=== PATIENT | female | born 1945 | race Caucasian/White ===

== ENCOUNTER → 2018-04-03 11:00 | Outpatient (CLI) | payer MEDICARE, OTHER, SELFPAY ==
[2018-04-03 12:31] LABS: BUN Creatinine Ratio 23.8 (6-22); Blood Urea Nitrogen 19 mg/dL (7-17); Calcium 9.7 mg/dL (8.4-10.2); Carbon Dioxide 29 mmol/L (22-32); Chloride 102 mmol/L (98-107); Cholesterol 205 mg/dL (140-199); Estimated Glomerular Filt Rate > 60.0 mL/min (>60); Glucose 99 mg/dL (80-110); HDL Cholesterol 52 mg/dL (40-60); HEMOLYSIS < 15 (0-50); LDL Cholesterol Calculated 133 mg/dL (<100); Potassium 3.7 mmol/L (3.4-5.1); Sodium 141 mmol/L (137-145); Triglycerides 100 mg/dL (35-150)
[2018-04-03 16:07] LABS: Hep C Virus Ab w/Reflex Quant NEGATIVE s/c (NEGATIVE)
[2018-04-07 13:51] LABS: Hepatitis B Surf AB Imm QUANT > 999 mIU/mL (> 9)
== END ==
PROVIDERS: PCP Family Medicine; Visit Provider Family Medicine
DX: Z13.220 Encounter for screening for lipoid disorders (principal); R03.0 Elevated blood-pressure reading, without diagnosis of hypertension; Z71.89 Other specified counseling; Z11.59 Encounter for screening for other viral diseases
CPT/HCPCS: 36415; 80048; 80061; 86317; 86762; 86803

== ENCOUNTER → 2018-12-11 12:29 | Outpatient (CLI) | payer MEDICARE, OTHER, SELFPAY ==
--- NOTE | 2018-12-11 | DI.MRI.S_ITS ---
PROCEDURE: MR SHOULDER RT WO CON INDICATIONS: ACUTE PAIN OF RIGHT SHOULDER TECHNIQUE: Noncontrast oblique coronal T2 fast spin echo with fat saturation, oblique sagittal T1 spin echo and T2 fast spin echo with fat saturation, axial T1 spin echo and T2 fast spin echo with fat saturation through the shoulder. COMPARISON: None. FINDINGS: Image quality: Excellent. Rotator cuff: There is massive full-thickness tear of the supraspinatus tendon with tendon retraction. No supraspinatus muscle atrophy. High-grade partial-thickness tear is present in infraspinatus and subscapularis tendons. Bones and bursae: No bone marrow contusions or fractures. Severe acromioclavicular and moderate glenohumeral joint degeneration. The acromion demonstrates conventional anatomy, without an os acromiale. There is small joint effusion. There is a small amount of subacromial-subdeltoid and subcoracoid bursal fluid, likely to rotator cuff tendon tear and joint effusion. Capsule and soft tissues: There is degenerative fraying of the anterior and posterior labrum. In the absence of intra-articular contrast, the glenohumeral ligaments appear intact. The long head of the biceps tendon demonstrates normal location and morphology. The rotator interval appears normal, without fibrosis. The coracohumeral ligament is normal in thickness. IMPRESSION: 1. Massive tear of the supraspinatus tendon with tendon retraction but no supraspinatus muscle atrophy. 2. High-grade partial-thickness tear of the infraspinatus and subscapularis tendons. 3. Degenerative fraying of the anterior and posterior glenoid labrum. 4. Severe acromioclavicular and moderate glenohumeral joint effusion. Dictated by: Jaelyn Ocasio M.D. on 12/11/2018 at 16:43 Approved by: Jaelyn Ocasio M.D. on 12/11/2018 at 18:56
== END ==
PROVIDERS: Family Provider Family Medicine; PCP Family Medicine; Visit Provider Family Medicine
DX: S46.011A Strain of muscle(s) and tendon(s) of the rotator cuff of right shoulder, initial encounter (principal); M25.511 Pain in right shoulder
CPT/HCPCS: 73221

== ENCOUNTER → 2020-06-19 09:05 | Outpatient (CLI) | payer MEDICARE, OTHER, SELFPAY ==
--- NOTE | 2020-06-19 09:13 | DI.RAD.S_ITS ---
PROCEDURE: XR HAND RT MIN 3V INDICATIONS: Right thumb pain TECHNIQUE: 3 views of the hand(s) acquired. COMPARISON: None. FINDINGS: Bones: No fractures or dislocations. Mild degenerative change. No osseous erosions identified. Carpal bones are normally aligned. No suspicious bony lesions. Soft tissues: No suspicious soft tissue calcifications. IMPRESSION: Mild degenerative change. No osseous erosions identified Dictated by: Curly Turner M.D. on 06/19/2020 at 8:55 Approved by: Curly Turner M.D. on 06/19/2020 at 8:57
--- NOTE | 2020-06-19 09:13 | DI.RAD.S_ITS ---
PROCEDURE: XR CHEST 2V INDICATIONS: Cough TECHNIQUE: 2 views of the chest were acquired. COMPARISON: None. FINDINGS: Surgical changes and devices: Left breast surgical clips. Lungs and pleura: Diffuse prominence of the pulmonary markings. Possible reticular thickening. No pleural effusions or pneumothorax. Mediastinum: Mediastinal contours are within normal limits. Heart size is within normal limits. Bones and chest wall: No suspicious bony abnormalities. Soft tissues appear unremarkable. IMPRESSION: Diffuse prominence of the pulmonary markings with possible reticular thickening. This could be due to emphysematous change, pulmonary edema, or possibly interstitial lung disease or less likely infectious/inflammatory etiology. If clinically indicated a CT of the chest could be performed for further evaluation. Dictated by: Curly Turner M.D. on 06/19/2020 at 8:52 Approved by: Curly Turner M.D. on 06/19/2020 at 8:54
== END ==
PROVIDERS: Family Provider Family Medicine; PCP Family Medicine; Referring Provider Family Medicine; Visit Provider Family Medicine
DX: R05 Cough (principal); M18.11 Unilateral primary osteoarthritis of first carpometacarpal joint, right hand
CPT/HCPCS: 71046; 73130

== ENCOUNTER → 2020-11-14 13:26 | Outpatient (CLI) | payer MEDICARE, OTHER, SELFPAY ==
--- NOTE | 2020-11-14 13:27 | DI.MRI.S_ITS ---
PROCEDURE: MR KNEE RT WO CON INDICATIONS: persistent knee pain TECHNIQUE: Noncontrast sagittal PD fast spin echo and T2 fast spin echo with fat saturation, sagittal 3-D FLASH with fat saturation; coronal T1 spin echo and PD fast spin echo with fat saturation, and axial PD fast spin echo with fat saturation through the knee. COMPARISON: None. FINDINGS: Image quality: Excellent. Menisci: There is linear oblique and amorphous high signal intensity within the medial meniscal body, demonstrating inferior articular surface extension, consistent with mild complex tearing. Amorphous high signal intensity within the anterior horn, body, and posterior horn lateral meniscus is present, demonstrating superior and inferior articular surface extension, indicating complex tearing. Cruciate ligaments: The anterior and posterior cruciate ligaments appear intact. Medial structures: The medial collateral ligament appears intact. Visualized portions of the pes anserinus tendons appear normal. No abnormal bursal fluid. Lateral structures: The lateral collateral ligament, long and short heads of the biceps femoris tendon appear intact. The popliteus tendon demonstrates moderate internal T2 signal elevation.. Iliotibial band appears normal. Anterior structures: The quadriceps and patellar tendons appear intact. Mild T2 signal elevation within the quadriceps and patellar tendons at the patellar insertion sites. Patellar alignment is normal. No femoral trochlear dysplasia or ventral trochlear prominence. No edema in the infrapatellar fat pad. Bones and cartilage: No bone marrow contusions or fractures. There is moderate articular cartilage loss diffusely overlying the weight-bearing aspects of the medial femoral condyle and medial tibial plateau. Mild articular cartilage loss diffusely overlies the weight-bearing aspects of the lateral femoral condyle and lateral tibial plateau. Moderate articular cartilage loss overlies the medial and lateral patellar facets with superimposed high-grade articular cartilage loss overlying the lateral patellar apex inferiorly. Joint space: There is a small knee joint effusion and a small Matute's cyst. Small ganglion cyst along the popliteus. Normal appearing synovial plicae are incidentally noted. IMPRESSION: 1. Tricompartmental osteoarthritis with associated articular cartilage loss. 2. Medial and lateral meniscal tearing. 3. Mild quadriceps and patellar tendinopathy. 4. Knee joint effusion, Matute's cyst, and ganglion cyst along the popliteus. 5. Tendinopathy of the popliteus. Dictated by: Chrissy Avalos M.D. on 11/14/2020 at 14:38 Approved by: Chrissy Avalos M.D. on 11/14/2020 at 14:45
== END ==
PROVIDERS: Family Provider Family Medicine; PCP Family Medicine; Referring Provider Family Medicine; Visit Provider Family Medicine
DX: M25.569 Pain in unspecified knee (principal); M17.11 Unilateral primary osteoarthritis, right knee; S83.281A Other tear of lateral meniscus, current injury, right knee, initial encounter; S83.241A Other tear of medial meniscus, current injury, right knee, initial encounter; M25.461 Effusion, right knee; M71.21 Synovial cyst of popliteal space [Baker], right knee; M67.461 Ganglion, right knee
CPT/HCPCS: 73721

== ENCOUNTER → 2021-02-21 08:51 | Outpatient (CLI) | payer MEDICARE, OTHER, SELFPAY ==
[2021-02-21 22:17] LABS: COVID19 - ORCAS (NP or Nasal) Negative (Negative)
== END ==
PROVIDERS: Family Provider Family Medicine; PCP Family Medicine; Visit Provider Family Medicine
DX: Z20.822 Contact with and (suspected) exposure to COVID-19 (principal)
CPT/HCPCS: C9803; U0003